=== PATIENT | male | born 1965 | race African-American/Black ===

== ENCOUNTER 2016-10-17 10:45 | Emergency (ER) | payer MEDICAID ==
[~2016-10-17] VITALS: Ht 182.9 cm; Wt 68.0 kg
[2016-10-17 11:40] VITALS: BP 119/91
[2016-10-17] MEDS ORDERED: BACITRACIN ZINC OINT UDPKT TOP ONE (12:45)
[2016-10-17] MEDS ORDERED: LIDOCAINE HCL 1% 20ML VIAL (Pyxis) INJ MC ONE (12:45)
== END 2016-10-17 14:46 | disposition home or self-care (01) ==
LOC: ER 14:45
DX: L02.01 Cutaneous abscess of face (principal); F17.210 Nicotine dependence, cigarettes, uncomplicated; Z88.0 Allergy status to penicillin
CPT/HCPCS: 10060; 99283; J3490; Z7610

== ENCOUNTER 2021-12-11 06:24 | Emergency (ER) | payer MEDICAID ==
[~2021-12-11] VITALS: Ht 182.9 cm; Wt 71.7 kg
[2021-12-11] MEDS ORDERED: HYDROCODONE/ACETAMINOPHEN 5/325MG TABLET PO ONE (07:45)
[2021-12-11 08:37] VITALS: BP 134/90
[2021-12-11] MEDS ORDERED: IBUP-2028 MT (08:38)
[2021-12-11] MEDS ORDERED: CLIN-116 MT (08:38)
== END 2021-12-11 09:02 | disposition home or self-care (01) ==
LOC: ER 06:24
DX: K04.7 Periapical abscess without sinus (principal); F17.210 Nicotine dependence, cigarettes, uncomplicated; Z88.0 Allergy status to penicillin
CPT/HCPCS: 99283

== ENCOUNTER 2024-01-23 14:25 | Emergency (ER) | payer MEDICAID ==
[~2024-01-23] VITALS: Ht 177.8 cm; Wt 67.0 kg
[~2024-01-23 14:25] MED LIST: CLIN-116 MT; IBUP-2028 MT
[2024-01-23 14:42] VITALS: BP 120/84; PULSE 83; RESP 16; TEMP 98; O2SAT 99
[2024-01-23 15:53] LABS: CLARITY URINE CLOUDY (CLEAR); COLOR URINE DARK YELLOW (YELLOW); GLUCOSE URINE NEGATIVE (NEGATIVE); KETONES URINE NEGATIVE (NEGATIVE); LEUKOCYTE ESTERASE URINE 1+ (NEGATIVE); NITRITE URINE POSITIVE (NEGATIVE); OCCULT BLOOD URINE NEGATIVE (NEGATIVE); PH URINE 5.5 (4.5-8.0); PROTEIN URINE 1+ (NEGATIVE); SPECIFIC GRAVITY URINE 1.028 (1.005-1.030)
[2024-01-23 16:01] LABS: *AMPHETAMINES SCREEN URINE NEGATIVE (NEGATIVE); *BARBITURATES SCREEN URINE NEGATIVE (NEGATIVE); *BENZODIAZEPINES SCREEN URINE NEGATIVE (NEGATIVE)
[2024-01-23 16:02] LABS: *COCAINE SCREEN URINE NEGATIVE (NEGATIVE); CANNABINOID URINE SCREEN PRESUMPTIVE POSITIVE (NEGATIVE); ECSTASY MDMA SCREEN URINE NEGATIVE (NEGATIVE); METHADONE URINE SCREEN NEGATIVE (NEGATIVE); OPIATES URINE SCREEN NEGATIVE (NEGATIVE); PHENCYCLIDINE URINE SCREEN NEGATIVE (NEGATIVE)
[2024-01-23 16:03] LABS: BASOPHILS % 0.9 % (0.0-2.0); DIFFERENTIAL COMMENT 0; EOSINOPHILS % 4.9 % (0.0-5.0); HEMATOCRIT. 37.8 % (42.0-52.0); HEMOGLOBIN. 12.7 g/dL (14.0-18.0); LYMPHOCYTES % 20.8 % (20.0-50.0); MEAN CORPUSCULAR HEMOGLOBIN 33.7 pg (28.0-32.0); MEAN CORPUSCULAR HGB CONC 33.6 g/dL (31.0-37.0); MEAN CORPUSCULAR VOLUME 100.2 fL (80.0-94.0); MEAN PLATELET VOLUME 9.7 fl (7.4-10.4); MONOCYTES % 4.4 % (2.0-8.0); PLATELET 437 x1000/uL (130-400); RED BLOOD CELL COUNT 3.77 mill/uL (4.7-6.1); RED CELL DISTRIBUTION WIDTH 13.5 % (11.6-14.6)
[2024-01-23 16:10] LABS: CHLORIDE 97 mEq/L (98-107); POTASSIUM 4.4 mEq/L (3.5-5.1); SODIUM 133 mEq/L (136-145)
[2024-01-23 16:11] LABS: CALCIUM 10.2 mg/dL (8.7-10.4); CARBON DIOXIDE 28 mEq/L (21-32)
[2024-01-23 16:16] LABS: CREATININE 1.1 mg/dL (0.6-1.3); D-DIMER 0.8 mg/L FEU (<0.50); GLUCOSE 93 mg/dL (70-105); PARTIAL THROMBOPLASTIN TIME 23.1 sec (23.4-31.0); PROTHROMBIN TIME 11.6 sec (9.6-11.0); UREA NITROGEN BLOOD 13 mg/dL (9-23)
[2024-01-23 16:17] LABS: BACTERIA URINE 2+; RBC URINE 0-2 /hpf (0-2); SQUAMOUS EPITHELIAL CELL URINE FEW /lpf (RARE/1+)
[2024-01-23 16:17] LABS: ETHANOL BLOOD < 10 mg/dL (<10); TROPONIN I HIGH SENSITIVITY < 4 ng/L (3.0-53)
[2024-01-23 16:18] LABS: ACETAMINOPHEN 3 ug/mL (10-30); ALANINE AMINOTRANSFERASE 947 IU/L (10-49); ALBUMIN 4.9 g/dL (3.2-4.8); ASPARTATE AMINOTRANSFERASE 570 IU/L (<34); BILIRUBIN TOTAL 6.3 mg/dL (0.1-1.0); PROTEIN TOTAL 8.5 g/dL (6.0-8.3)
[2024-01-23 16:22] LABS: THYROID STIMULATING HORMONE 2.33 uIU/mL (0.55-4.78)
[2024-01-23 16:33] LABS: HEPATITIS B SURFACE ANTIGEN NEGATIVE (Negative)
[2024-01-23 16:53] LABS: HEPATITIS A AB IGM NEGATIVE (Negative)
[2024-01-23 16:54] LABS: HEPATITIS B CORE AB IGM NEGATIVE (Negative); HEPATITIS C AB NON REACTIVE (Neg) (Negative)
[2024-01-23] MEDS: SODIUM CHLORIDE 0.9% 1000ML BAG (SEPSIS BOLUS) IV ONE (17:44)
[2024-01-23] MEDS: CEFTRIAXONE 1GM/50ML 50 ML IV ONE (17:44)
== END 2024-01-23 17:48 | disposition left against medical advice (07) ==
LOC: ER 14:25
DX: R79.89 Other specified abnormal findings of blood chemistry (principal); I50.810 Right heart failure, unspecified; N39.0 Urinary tract infection, site not specified; R51.9 Headache, unspecified; I49.9 Cardiac arrhythmia, unspecified; Z88.0 Allergy status to penicillin
CPT/HCPCS: 80053; 80305; 81003; 80307; 80320; 83690; 84443; 85025; 85379; 85610; 85730; 87340; 87086; 84484; 36415; 86705; 86709; 71045; 70450; 74176; 76705; 93005; 99291; J7030; Z7610 ×2; 99285; G0480